=== PATIENT | female | born 2000 | race African-American/Black ===

== ENCOUNTER 2019-04-30 18:15 | Emergency (ER) | payer OTHER, SELFPAY ==
--- NOTE | 2019-04-30 18:30 | ED.ABDPAIN ---
HPI - Abdominal Pain General Chief Complaint: Nausea/Vomiting/Diarrhea Stated Complaint: Vomiting Time Seen by Provider: 04/30/19 18:18 Source: patient Mode of arrival: ambulatory Limitations: no limitations History of Present Illness HPI narrative: 18 yo Female who presents with c/o nausea, vomiting and left abdominal pain. Patient states she thinks that she has food poisoning. Yesterday she ate [employer] [place] for rice House around 6 pm, and she reports less than an hour later she develop nausea and vomiting. She reports she has continued to have nausea and vomiting today and she is unable to keep anything down including water . She also reports left upper abdomen and left flank pain. She denies fever or chills. She denies urinar complaints. She reports irregular periods due to her control. MD elicited complaint: abdominal pain Onset (ago): day(s) (1) Pain Consistency: constant Location: L flank Exacerbating factors: nothing Relieving factors: nothing Context: confirms possible food poisoning Associated symptoms: nausea and vomiting Related Data Home Medications Medication Instructions Recorded Confirmed acyclovir 04/30/19 Allergies Allergy/AdvReac Type Severity Reaction Status Date / Time ibuprofen Allergy Chest Pain Verified 04/30/19 18:38 Review of Systems Review of Systems: All systems reviewed & are unremarkable except as noted in HPI and below Constitutional: Constitutional: Denies chills, Denies fever(s) and Denies weakness ENT: Denies epistaxis and Denies sore throat Cardiovascular: Cardiovascular: Denies chest pain Gastrointestinal: Gastrointestinal: Reports abdominal pain, Denies diarrhea, Reports nausea and Reports vomiting Genitourinary: Genitourinary: Denies hematuria, Denies nocturia, Denies dysuria and Reports flank pain Musculoskeletal: Musculoskeletal: Reports back pain PMFSH Past Medical History Medical History (Updated 05/01/19 @ 00:00 by Annabel Chen) Healthy adult Surgical History Surgical History (Updated 04/30/19 @ 18:36 by Abby Campbell MD) H/O wisdom tooth extraction Social History Social History Gender identity (if verbalized by the patient): Female Exam Narrative: Exam Narrative: GENERAL: Well-appearing, well-nourished, and in no acute distress. HEAD: Normocephalic, atraumatic EYES: PERRLA and EOMI, conjunctiva clear without discharge THROAT:Mucous membranes moist, Oropharynx normal without erythema, exudate, peritonsillar swelling or fluctuance NECK: Supple, without lymphadenopathy or mass RESPIRATORY: No respiratory distress, Airway patent, Respirations non-labored, Clear to auscultation without rales, rhonchi or wheeze HEART: Regular rate and rhythm. No murmur heard. Normal peripheral pulses. ABDOMEN: Soft,LUQ, left CVA tenderness, nondistended, normal active bowel sounds. No masses. No rebound or guarding, No organomegaly. EXTREMITIES: No edema, normal strength with full range of motion. SKIN: Warm, dry, normal color without rash NEURO: Alert and oriented x3. CN 2-12 grossly intact. No focal deficits. PSYCH: Normal mood and affect. Course Reevaluation(s) Reevaluation #1: Patient states she feels much better. She denies abdominal pain, nausea or vomiting. She is eating crackers and drinking clear soda without nausea or vomiting. I discussed she will be discharge after hydration. Her labs are unremarkable. Date: 04/30/19 Time: 19:51 Vital Signs Vital signs: Vital Signs Temperature 99.3 F 04/30/19 18:33 Pulse Rate 72 04/30/19 18:33 Respiratory Rate 13 04/30/19 18:33 Blood Pressure 125/79 04/30/19 18:33 Pulse Oximetry 99 04/30/19 18:33 Temperature 98.8 F 04/30/19 20:25 Pulse Rate 81 04/30/19 20:25 Respiratory Rate 15 04/30/19 20:25 Blood Pressure 116/65 04/30/19 20:25 Pulse Oximetry 100 04/30/19 20:25 MDM - Abdominal Pain Lab Data Result diagrams: 04/30/19 18
[2019-04-30 18:33] VITALS: BP 125/79; PULSE 72; RESP 13; TEMP 37.4; O2SAT 99
[2019-04-30 18:50] LABS: Basophils Percent Auto 0.5 % (0.2-1.2); Eosinophils Absolute Auto 0.1 K/mm3 (0-0.3); Eosinophils Percent Auto 1.1 % (0-4.4); Hematocrit 42.6 % (37.0-47.0); Hemoglobin 14.6 g/dL (12.0-15.0); Immature Granulocyte Absolute 0.01 K/mm3 (0.00-0.031); Immature Granulocyte Percent A 0.2 % (0-0.5); Immature Platelet Fraction Pct 16.5 % (0.9-11.2); Lymphocytes Absolute Auto 2.02 K/mm3 (0.9-3.2); Lymphocytes Percent Auto 36.5 % (18.3-44.2); Mean Corpuscular HGB Conc 34.3 g/dl (32-36); Mean Corpuscular Hemoglobin 29.1 pg (26-34); Mean Platelet Volume 13.2 fl (7.4-10.4); Monocytes Absolute Auto 0.4 K/mm3 (0.1-0.6); Monocytes Percent Auto 7.8 % (2.6-8.5); Neutrophils Percent Auto 53.9 % (45.5-73.1); Platelet Count Result 200 k/mm3 (150-375); Red Blood Count 5.01 M/mm3 (4.2-5.4); Red Cell Distribution Width 11.4 % (11.5-14.5); White Blood Count 5.5 K/mm3 (4.5-10.0)
[2019-04-30 18:52] LABS: Add Urine Microscopic? YES; Appearance Urine Clear (Clear); Bacteria Urine Trace /hpf; Bilirubin Urine Negative (Negative); Blood Urine Negative (Negative); Color Urine Yellow (Yellow); Glucose Urine UA Negative (Negative); Ketones Urine Negative (Negative); Leukocyte Esterase Ur Trace LEU/UL (Negative); Mucus Urine Heavy /lpf; Nitrate Urine Negative (Negative); Protein Urine 1+ mg/dL (Negative); RBC Urine 0-2 /hpf (0-2); Squamous Epithelial Cell Urine Many /hpf (Few); WBC Urine 0-3 /hpf
[2019-04-30 18:59] LABS: Alanine Aminotransferase 30 U/L (4-35); Alkaline Phosphatase 73 U/L (45-116); Aspartate Amino Transferase 33 U/L (14-36); Bilirubin,Total 0.4 mg/dL (0.2-1.3); Blood Urea Nitrogen 13 mg/dL (8-21); Calcium 9.8 mg/dL (8.9-10.7); Carbon Dioxide 25 mmol/L (22-30); Chloride 99 mmol/L (98-107); Estimated CRCL calculation 89 ml/min; Estimated Glomerular Filt Rate > 60; Glucose 85 mg/dL (65-105); Lipase 105 U/L (23-300); Potassium 3.7 mmol/L (3.4-5.0); Sodium 139 mmol/L (134-143)
[2019-04-30 19:00] LABS: Specific Grav Ur 1.031 (1.001-1.035)
[2019-04-30] MEDS: SODIUM CHLORIDE 0.9% IV 2,000 ML 999 ML IV CONT (19:02)
[2019-04-30] MEDS: ONDANSETRON INJ 4 MG/2 ML VIAL IV PUSH (19:04)
[2019-04-30] MEDS: PANTOPRAZOLE SODIUM IV 40 MG VIAL IV PUSH (19:05)
--- NOTE | 2019-04-30 19:09 | PC.NURSE ---
Bedside report to RYAN Aguiar, to continue care.
[2019-04-30 19:17] VITALS: BP 101/68; BP 108/60; BP 134/77; PULSE 57; PULSE 60; PULSE 81
[2019-04-30 19:18] VITALS: BP 134/77; PULSE 70; RESP 15; O2SAT 98
[2019-04-30 19:38] VITALS: TEMP 37.4
[2019-04-30 20:25] VITALS: BP 116/65; PULSE 81; RESP 15; TEMP 37.1; O2SAT 100
--- NOTE | 2019-04-30 20:28 | PC.NURSE ---
Per ALEXANDRA Campbell, run both liters of NS concurrently. Both 1000mL bags infused at this time.
== END 2019-04-30 20:29 | disposition home or self-care (01) ==
PROVIDERS: Emergency Provider General Practice
DX: R11.2 Nausea with vomiting, unspecified (principal)
CPT/HCPCS: 36415; 80053; 81001; 81025; 83690; 85025; 85055; 96361; 96374; 96375; 99284; C9113; J0131; J2405; J7030